=== PATIENT | female | born 1995 | race Two or more races ===

== ENCOUNTER 2018-01-15 16:41 | Emergency (ER) | payer OTHER ==
[~2018-01-15] VITALS: Ht 165.1 cm; Wt 49.9 kg
[2018-01-15] MEDS ORDERED: PRENA1 TRUE CO1 EACH (16:59)
== END 2018-01-15 20:43 | disposition home or self-care (01) ==
LOC: ER 16:41
DX: O23.511 Infections of cervix in pregnancy, first trimester (principal); Z34.81 Encounter for supervision of other normal pregnancy, first trimester

== ENCOUNTER → 2018-02-11 | Emergency (ER) | payer OTHER ==
[~2018-02-11] VITALS: Ht 165.1 cm; Wt 49.9 kg
[~2018-02-11] MED LIST: PRENA1 TRUE CO1 EACH
== END | disposition home or self-care (01) ==
LOC: ER 06:13
DX: O20.0 Threatened abortion (principal); Z34.02 Encounter for supervision of normal first pregnancy, second trimester

== ENCOUNTER 2018-04-28 11:13 | Inpatient (IN) | payer OTHER ==
[~2018-04-28] VITALS: Ht 165.1 cm; Wt 0.5 kg
== END 2018-05-05 14:40 | disposition home or self-care (01) | DRG 807 ==
LOC: OBS/DEL 11:13 → LDR 12:53 → OB/GYN 05-03 23:44
PROVIDERS: ADMIT Specialist
PROC: BY4CZZZ Ultrasonography of Second Trimester, Single Fetus (ICD-10-PCS; 2018-04-28)
PROC: 4A1HXCZ Monitoring of Products of Conception, Cardiac Rate, External Approach (ICD-10-PCS; 2018-04-28)
PROC: 10E0XZZ Delivery of Products of Conception, External Approach (ICD-10-PCS; principal; 2018-05-03)
DX: O42.912 Preterm premature rupture of membranes, unspecified as to length of time between rupture and onset of labor, second trimester (principal); Z37.0 Single live birth; Z3A.24 24 weeks gestation of pregnancy; Z22.330 Carrier of Group B streptococcus

== ENCOUNTER 2020-09-25 08:00 | Outpatient (CLI) | payer OTHER | END 2020-09-25 08:30 | disposition home or self-care (01) | LOC: PPH VACUNA 08:00 | DX: Z23 Encounter for immunization (principal) ==

== ENCOUNTER 2020-10-17 08:00 | Outpatient (CLI) | payer OTHER | END 2020-10-17 08:30 | disposition home or self-care (01) | LOC: PPH VACUNA 08:00 | PROVIDERS: ATTEND Emergency Medicine Pediatric Emergency Medicine | DX: Z23 Encounter for immunization (principal) ==

== ENCOUNTER 2020-12-07 12:53 | Emergency (ER) | payer OTHER ==
[~2020-12-07] VITALS: Ht 165.1 cm; Wt 54.4 kg
== END 2020-12-07 15:51 | disposition home or self-care (01) ==
LOC: ER 12:53
DX: N39.0 Urinary tract infection, site not specified (principal)

== ENCOUNTER 2021-04-03 08:00 | Outpatient (CLI) | payer OTHER | END 2021-04-03 08:30 | disposition home or self-care (01) | LOC: PPH VACUNA 08:00 | PROVIDERS: ATTEND Emergency Medicine Pediatric Emergency Medicine | DX: Z23 Encounter for immunization (principal) ==

== ENCOUNTER 2022-01-17 08:59 | Outpatient (CLI) | payer OTHER | END 2022-01-17 09:08 | disposition home or self-care (01) | LOC: SONOGRAMA 08:59 | PROVIDERS: ATTEND Specialist | DX: N92.1 Excessive and frequent menstruation with irregular cycle (principal) ==

== ENCOUNTER 2022-12-29 19:16 | Emergency (ER) | payer OTHER ==
[~2022-12-29] VITALS: Ht 165.1 cm; Wt 50.8 kg
[2022-12-29 20:21] LABS: HEMATOCRIT 35.8 % (36.0-45.00); HEMOGLOBIN 12.3 g/dL (12.0-15.00); MEAN CELL VOLUME 92.4 fL (80.00-100.00); MEAN CORPUSCULAR HEMOGLOBIN 31.7 pg (27.00-32.0); MEAN CORPUSCULAR HGB CONC 34.3 g/dl (32.0-36.0); PLATELET COUNT 275 K/uL (150-450); RED BLOOD COUNT 3.87 M/uL (4.00-6.00); RED CELL DISTRIBUTION WIDTH 12.6 % (11.5-14.5)
[2022-12-29 20:42] LABS: INR 0.98; PARTIAL THROMBOPLASTIN TIME 27.3 SECONDS (22.0-34.0); PROTHROMBIN TIME 10.3 SECONDS (9.0-11.5)
[2022-12-29 20:52] LABS: PH,URINE 5.5 (5.0-8.0); URINE APPEARANCE Cloudy; URINE BACTERIA 478.7 uL (0.0-1933); URINE BILIRRUBIN Negative (NEGATIVE); URINE BLOOD Large; URINE COLOR Orange; URINE EPITHELIAL CELLS 67.2 uL (0.0-38.8); URINE GLUCOSE Negative (NEGATIVE); URINE LEUKOCYTE Small; URINE NITRATE Negative; URINE PROTEIN Trace (NEGATIVE); URINE UROBILINOGEN 0.2 E.U./dl; URINE WBC 42.8 uL (0.0-23.2)
[2022-12-29 21:00] LABS: CALCIUM 8.7 mg/dL (8.5-10.1); CREATININE SERUM 0.52 mg/dL (0.55-1.02); GFR 143.68; POTASSIUM 3.61 mEq/L (3.5-5.1)
== END 2022-12-29 23:50 ==
LOC: ER 19:16
PROVIDERS: Nurse Practitioner Family
DX: O20.8 Other hemorrhage in early pregnancy (principal); Z3A.10 10 weeks gestation of pregnancy

== ENCOUNTER → 2023-01-10 08:49 | Outpatient (CLI) | payer OTHER | END | disposition home or self-care (01) | LOC: PRENATAL 08:49 | PROVIDERS: ATTEND Obstetrics & Gynecology Maternal & Fetal Medicine | DX: O36.80X0 Pregnancy with inconclusive fetal viability, not applicable or unspecified (principal); Z36.82 Encounter for antenatal screening for nuchal translucency; O09.219 Supervision of pregnancy with history of pre-term labor, unspecified trimester; Z14.8 Genetic carrier of other disease; Z3A.12 12 weeks gestation of pregnancy ==

== ENCOUNTER → 2023-02-11 09:07 | Outpatient (CLI) | payer OTHER | END | disposition home or self-care (01) | LOC: PRENATAL 09:07 | PROVIDERS: ATTEND Obstetrics & Gynecology Maternal & Fetal Medicine | DX: O26.849 Uterine size-date discrepancy, unspecified trimester (principal); O09.219 Supervision of pregnancy with history of pre-term labor, unspecified trimester; Z3A.16 16 weeks gestation of pregnancy ==

== ENCOUNTER → 2023-03-06 08:05 | Outpatient (CLI) | payer OTHER | END | disposition home or self-care (01) | LOC: PRENATAL 08:05 | PROVIDERS: ATTEND Obstetrics & Gynecology Maternal & Fetal Medicine | DX: O35.3XX0 Maternal care for (suspected) damage to fetus from viral disease in mother, not applicable or unspecified (principal); O44.00 Complete placenta previa NOS or without hemorrhage, unspecified trimester; O09.219 Supervision of pregnancy with history of pre-term labor, unspecified trimester; Z3A.20 20 weeks gestation of pregnancy ==

== ENCOUNTER 2023-04-04 11:00 | Outpatient (CLI) | payer OTHER | END 2023-04-04 11:01 | disposition home or self-care (01) | LOC: PRENATAL 11:00 | PROVIDERS: ATTEND Obstetrics & Gynecology Maternal & Fetal Medicine | DX: O26.849 Uterine size-date discrepancy, unspecified trimester (principal); O44.00 Complete placenta previa NOS or without hemorrhage, unspecified trimester; O09.219 Supervision of pregnancy with history of pre-term labor, unspecified trimester; Z3A.23 23 weeks gestation of pregnancy ==

== ENCOUNTER 2025-02-06 19:15 | Emergency (ER) | payer OTHER ==
[~2025-02-06] VITALS: Ht 165.1 cm; Wt 59.0 kg
[~2025-02-06 19:15] MED LIST changes: +BENADRYL ALLERG25 MG PO; +IBUPROFEN800 MG PO; +PRENATAL TABLE1 EAC4 PO
[2025-02-06] MEDS ORDERED: CEFTRIAXONE SODIUM 1,000 MG VIAL IM STA (19:51)
[2025-02-06] MEDS ORDERED: KETOROLAC TROMETHAMINE 15 MG VIAL IM STA (19:51)
[2025-02-06] MEDS ORDERED: METHYLPREDNISOLONE SOD SUCC 125 MG VIAL IM STA (21:17)
[2025-02-06] MEDS ORDERED: DIPHENHYDRAMINE HCL 50 MG/ML VIAL 1ML IM STA (21:18)
[2025-02-06 21:21] LABS: BASO % 0.5 % (0.1-1.2); EOS # 0.13 (0.04-0.54); EOS % 0.9 % (0.7-7.0); LYMPH # 3.32 (1.18-3.74); LYMPH % 23.4 % (19.3-53.1); MEAN PLATELET VOLUME 9.00 fl (9.4-12.4); MONO # 0.87 (0.24-0.82); MONO % 6.1 % (4.7-12.5); NEUT # 9.73 (1.56-6.13); NEUT % 68.6 % (34.0-71.1); RED CELL DISTRIBUTION WIDTH 12.3 % (11.6-14.4)
[2025-02-06 22:26] LABS: URINE APPEARANCE Cloudy; URINE BILIRRUBIN Negative (NEGATIVE); URINE BLOOD Large; URINE COLOR Yellow; URINE GLUCOSE Negative (NEGATIVE); URINE KETONE 15 (NEGATIVE); URINE LEUKOCYTE Large; URINE NITRATE Positive; URINE PROTEIN 30 (NEGATIVE); URINE UROBILINOGEN 1.0 E.U./dl
[2025-02-06 22:30] LABS: URINE CAST 7.36 uL (0.0-1.40); URINE EPITHELIAL CELLS 9.1 uL (0.0-38.8); URINE RBC 5687.8 uL (0.0-20.8); URINE WBC 1208.2 uL (0.0-23.2)
[2025-02-06 22:44] LABS: URINE BACTERIA > 9821.5 uL (0.0-1933)
[2025-02-06] MEDS ORDERED: BACTRIM DS TAB1 EACH PO (23:24)
[2025-02-06] MEDS ORDERED: PYRIDIUM200 MG PO (23:24)
[2025-02-06] MEDS ORDERED: PREDNISOLONE SO10 MG PO (23:25)
[2025-02-06 23:50] VITALS: BP 131/90; O2SAT 100
== END 2025-02-06 23:50 | disposition home or self-care (01) ==
LOC: ER 19:15
PROVIDERS: General Practice
DX: N39.0 Urinary tract infection, site not specified (principal); B96.1 Klebsiella pneumoniae [K. pneumoniae] as the cause of diseases classified elsewhere; Z91.038 Other insect allergy status